=== PATIENT | female | born 1970 | race Caucasian/White ===

== ENCOUNTER → 2017-10-03 | Outpatient (CLI) | payer BC ==
[2017-02-09 16:52] VITALS: BP 122/80
--- NOTE | 2017-10-03 16:44 | RAD ---
Examination: Cervical spine, five views History: Neck pain no injury Findings: Normal appearance of vertebrae, disc spaces, prevertebral soft tissues. There is no evidenc e for trauma, arthritis, bone destruction or other significant lesion. The neural foramina and atlant oaxial complex appear normal. Impression: Within normal limits. Reported By:
== END ==
LOC: RAD 15:44
PROVIDERS: ATTEND Obstetrics & Gynecology Obstetrics
DX: M54.12 Radiculopathy, cervical region (principal)
CPT/HCPCS: 72050

== ENCOUNTER → 2017-10-19 | Outpatient (CLI) | payer BC ==
[2017-02-09 16:52] VITALS: BP 122/80
--- NOTE | 2017-10-23 09:43 | MRI ---
HISTORY: Cervical radiculopathy, neck pain and left arm pain Study: MRI cervical spine without contrast Comparison: Cervical radiographs performed on 10/03/2017 Technique: Multiplanar multisequence MRI of the cervical spine was obtained utilizing standard [facility] protocol. Findings: Imaging of the cervical spine demonstrates normal vertebral alignment. There is no spondylolisthesis. No bone marrow edema is present. Multilevel disc desiccation is noted. However, disc space height is preserved throughout. There are no significant degenerative endplate changes appreciated. Cervical c ord signal is normal throughout. Evaluation of the pre and paravertebral soft tissues is unremarkable . Incidental note is made of an enlarged level II a lymph node on the left with a short axis dimensio n of 1.2 cm. This lymph node is nonspecific and may be reactive in nature. Smaller but borderline enl arged level V nodes are noted bilaterally. C2 -- C3: At the C2-C3 level there is a tiny central disc osteophyte complex without canal stenosis o r neuroforaminal compromise. C3 -- C4: The C3-C4 level is unremarkable. C4 -- C5: At the C4-C5 level there is minimal uncovertebral spurring without significant canal stenos is or neuroforaminal compromise. C5 -- C6: At the C5-C6 level there is left uncovertebral spurring without significant canal stenosis or neuroforaminal compromise. C6 -- C7: At the C6-C7 level there is a mild broad-based disc osteophyte complex and mild uncovertebr al spurring without significant canal stenosis or neuroforaminal compromise. C7 -- T1: The C7-T1 level is unremarkable. IMPRESSION: 1. Mild cervical spondylosis without significant canal stenosis or neuroforaminal compromise. Reported By:
== END ==
LOC: RAD 09:11
PROVIDERS: ATTEND Obstetrics & Gynecology Obstetrics
DX: M54.12 Radiculopathy, cervical region (principal)
CPT/HCPCS: 72141